=== PATIENT | male | born 1970 | race Hispanic/Latino ===

== ENCOUNTER 2017-06-18 10:08 | Emergency (ER) | payer MEDICARE, BC ==
[2017-06-18 10:31] VITALS: TEMP 99
[2017-06-18 11:09] VITALS: BMI 50.2
[2017-06-18 11:46] LABS: BASO % 0.6 % (0.0-2.0); EOS # 0.1 K/uL (0.0-0.7); EOS % 1.3 % (0.0-4.0); HEMATOCRIT 38.8 % (35.0-51.0); LYMPH # 1.7 K/uL (1.0-4.3); LYMPH % 27.2 % (20.0-40.0); MEAN CELL VOLUME 88.6 fL (80.0-94.0); MEAN CORPUSCULAR HEMOGLOBIN 29.8 pg (27.0-31.0); MEAN CORPUSCULAR HGB CONC 33.6 g/dL (33.0-37.0); MEAN PLATELET VOLUME 8.3 fL (7.2-11.7); MONO # 0.5 K/uL (0.0-0.8); MONO % 7.3 % (0.0-10.0); NRBC % 0.1 % (0.0-2.0); RED CELL DISTRIBUTION WIDTH 13.9 % (11.5-14.5); WHITE BLOOD COUNT 6.2 K/uL (4.8-10.8)
--- NOTE | 2017-06-18 11:51 | RAD ---
HISTORY: pre-op COMPARISON: None available. TECHNIQUE: Chest, one view. FINDINGS: Examination markedly limited by habitus and hypoinflation. LUNGS: Prominent interstitial markings may reflect exaggerated vasculature due to hypoinflation rather than pulmonary venous congestion. Correlate clinically. Please note that chest x-ray has limited sensitivity for the detection of pulmonary masses. PLEURA: No significant pleural effusion identified. No definite pneumothorax . CARDIOVASCULAR: Cardiomegaly. OSSEOUS STRUCTURES: No acute osseous abnormality identified. VISUALIZED UPPER ABDOMEN: Unremarkable. OTHER FINDINGS: None. IMPRESSION: Prominent interstitial markings may reflect exaggerated vasculature due to hypoinflation rather than pulmonary venous congestion. Correlate clinically. Bibasilar atelectasis. Hypoinflation. Cardiomegaly.
[2017-06-18 11:54] LABS: INR 1.2
[2017-06-18 12:00] LABS: RBC URINE 2 /hpf (0-3); URINE BACTERIA RARE (<OCC); URINE BILIRUBIN NEGATIVE (NEGATIVE); URINE BLOOD NEGATIVE (NEGATIVE); URINE COLOR Amber (YELLOW); URINE GLUCOSE (UA) NORMAL (Normal); URINE KETONE NEGATIVE (NEGATIVE); URINE LEUKOCYTE ESTERASE NEG Leu/uL (Negative); URINE PROTEIN 1+ mg/dL (NEGATIVE); URINE UROBILINOGEN NORMAL mg/dL (0.2-1.0); WBC URINE 2 /hpf (0-5)
[2017-06-18 12:10] LABS: CHLORIDE 102 mmol/L (98-107); POTASSIUM 3.7 mmol/L (3.6-5.2); SODIUM 135 mmol/L (132-148)
[2017-06-18 12:12] LABS: BILIRUBIN,TOTAL 0.6 mg/dL (0.2-1.3); CARBON DIOXIDE 21 mmol/L (22-30); GFR AFRICAN-AMERICAN > 60
[2017-06-18 12:13] LABS: ALB/GLOB RATIO 1.2 (1.0-2.1); ALKALINE PHOSPHATASE 57 U/L (38-126); ALT/SGPT 47 U/L (21-72); AST/SGOT 27 U/L (17-59); BLOOD UREA NITROGEN 14 mg/dL (9-20); CALCIUM 8.9 mg/dl (8.6-10.4); GLUCOSE,RANDOM 105 mg/dL (75-110); TOTAL PROTEIN 7.8 g/dL (6.3-8.3)
--- NOTE | 2017-06-18 13:24 | US ---
PROCEDURE: Ultrasound of the Bladder HISTORY: difficulty urinating COMPARISON: None available. TECHNIQUE: Sonographic evaluation of the bladder was performed. FINDINGS: Examination limited as patient voided prior to imaging. Prevoid urinary bladder calculations and measurements could not be obtained. Postvoid urinary bladder volume 41.9 cc. Prostate gland volume 19.7 cc. No evidence of urinary bladder wall thickening. Bilateral ureteral jets were not identified. IMPRESSION: Examination limited as patient voided prior to imaging. Prevoid urinary bladder measurements could not be obtained. Postvoid urinary bladder volume 41.9 cc. Bilateral ureteral jets were not identified.
--- NOTE | 2017-06-18 13:46 | C.PDOC ---
History Of Present Illness 47 year old male presents to the ED c/o several week of difficulty urinating. Patient states he is able to urinate only when he sits down is not able to urinate standing up, also states his penis is retracted inside his skin. He states trying to make an appointment with the , but could only get one for next month, so he decided to come in today. Patient is able to urinate while in the ED and gave a sample for the labs. Patient denies any pain. Time Seen by Provider: 06/18/17 10:43 Chief Complaint (Nursing): Male Genitourinary History Per: Patient History/Exam Limitations: no limitations Onset/Duration Of Symptoms: Days Current Symptoms Are (Timing): Still Present Associated Symptoms: Urinary Symptoms. denies: Fever, Chills, Nausea, Vomiting , Diarrhea Alleviating Factors: None Recent travel outside of the [place]: No Additional History Per: Patient Past Medical History Reviewed: Historical Data, Nursing Documentation, Vital Signs Vital Signs: Last Vital Signs Temp 99 F 06/18/17 10:30 Pulse 73 06/18/17 15:56 Resp 18 06/18/17 15:56 BP 127/77 06/18/17 15:56 Pulse Ox 98 06/18/17 15:56 - Medical History PMH: Anxiety, Depression, HTN Surgical History: No Surg Hx Family History: States: Unknown Family Hx - Social History Hx Alcohol Use: No Hx Substance Use: No - Immunization History Hx Tetanus Toxoid Vaccination: No Hx Influenza Vaccination: Yes Hx Pneumococcal Vaccination: No Review Of Systems Constitutional: Negative for: Fever, Chills Cardiovascular: Negative for: Chest Pain Respiratory: Negative for: Cough, Shortness of Breath Gastrointestinal: Negative for: Nausea, Vomiting, Abdominal Pain, Constipation Genitourinary: Positive for: Other (Difficulty urinating while standing up, able to urinate seating down). Negative for: Penile Discharge Musculoskeletal: Negative for: Back Pain Neurological: Negative for: Weakness, Numbness Physical Exam - Physical Exam Appears: Well, Non-toxic, No Acute Distress Skin: Normal Color, Warm, Dry Head: Atraumatic, Normacephalic Eye(s): bilateral: Normal Inspection Oral Mucosa: Moist Neck: Normal ROM, Supple Chest: Symmetrical Cardiovascular: Rhythm Regular, No Murmur Respiratory: Normal Breath Sounds, No Accessory Muscle Use, No Rales, No Rhonchi , No Wheezing Gastrointestinal/Abdominal: Soft, No Tenderness, No Guarding, No Rebound, Other (Obese) Male Genital: Normal Inspection, No Testicular Tenderness, No Testicular Swelling, No Inguinal Tenderness, No Inguinal Swelling, No Scrotal Swelling, Circumcised, Other (No paraphimosis, phimosis, or erythema, no penile tenderness, no penile discharge) Neurological/Psych: Oriented x3, Normal Speech, Normal Cognition ED Course And Treatment - Laboratory Results Result Diagrams: 06/18/17 11:41 06/18/17 11:41 O2 Sat by Pulse Oximetry: 97 (On RA) Pulse Ox Interpretation: Normal - Radiology CXR: Interpreted by Me, Viewed By Me, Read By Radiologist CXR Interpretation: Yes: Cardiomegaly - CT Scan/US US of the Bladder Other Rad Studies (CT/US): Interpreted By Me, Read By Radiologist, Radiology Report Reviewed CT/US Interpretation: PROCEDURE: Ultrasound of the Bladder. HISTORY: difficulty urinating. COMPARISON: None available. TECHNIQUE: Sonographic evaluation of the bladder was performed. FINDINGS: Examination limited as patient voided prior to imaging. Prevoid urinary bladder calculations and measurements could not be obtained. Postvoid urinary bladder volume 41.9 cc. Prostate gland volume 19.7 cc. No evidence of urinary bladder wall thickening. Bilateral ureteral jets were not identified. IMPRESSION: Examination limited as patient voided prior to imaging. Prevoid urinary bladder measurements could not be obtained. Postvoid urinary bladder volume 41.9 cc. Bilateral ureteral jets were not identified. Progress Note: Plan: -EKG, blood work, CXR, UA ordered. -US urinary bladder ordered. CXR results: HISTORY: pre-op. COMPARISON: None available. TECHNIQUE: Chest, one view. FINDINGS: Examination markedly limited by habitus and hypoinflation. LUNGS: Prominent interstitial markings may reflect exaggerated vasculature due to hypoinflation rather than pulmonary venous congestion. Correlate clinically. Please note that chest x-ray has limited sensitivity for the detection of pulmonary masses. PLEURA: No significant pleural effusion identified. No definite pneumothorax . CARDIOVASCULAR: Cardiomegaly. OSSEOUS STRUCTURES: No acute osseous abnormality identified. VISUALIZED UPPER ABDOMEN: Unremarkable. OTHER FINDINGS: None. IMPRESSION: Prominent interstitial markings may reflect exaggerated vasculature due to hypoinflation rather than pulmonary venous congestion. Correlate clinically. Bibasilar atelectasis. Hypoinflation. Cardiomegaly. case was d/c who requested to start patient on Flomax and instruct patient to call his office tomorrow after 11 am to schedule an appointment for this week. Disposition - Disposition Referrals: Sol Colorado MD [Staff Provider] - Disposition: HOME/ ROUTINE Disposition Time: 15:02 Condition: STABLE Additional Instructions: Follow up with . Call him tomorrow after 11 am to schedule an appointment. Return to ED immediately if feel worse. Prescriptions: Tamsulosin HCl [Flomax] 0.4 mg PO DAILY #30 cap.er.24h Instructions: Tamsulosin (By mouth) Forms: Spinal Modulation (Chinese) - Clinical Impression Clinical Impression: Difficulty urinating - PA / NEUROLOGICAL SURGERY TEACHER / Resident Statement MD/DO has reviewed & agrees with the documentation as recorded. - Scribe Statement The provider has reviewed the documentation as recorded by the Scribe Idris Bonilla All medical record entries made by the Scribe were at my direction and personally dictated by me. I have reviewed the chart and agree that the record accurately reflects my personal performance of the history, physical exam, medical decision making, and the department course for this patient. I have also personally directed, reviewed, and agree with the discharge instructions and disposition.
--- NOTE | 2017-06-18 13:50 | C.PDOC ---
Time Seen by Provider: 06/18/17 10:43 Chief Complaint (Nursing): Male Genitourinary Past Medical History Vital Signs: Last Vital Signs Temp 99 F 06/18/17 10:30 Pulse 89 06/18/17 10:30 Resp 20 06/18/17 10:30 BP 131/84 06/18/17 10:30 Pulse Ox 97 06/18/17 10:30 - Medical History PMH: Anxiety, Depression, HTN - Social History Hx Alcohol Use: No Hx Substance Use: No - Immunization History Hx Tetanus Toxoid Vaccination: No Hx Influenza Vaccination: Yes Hx Pneumococcal Vaccination: No ED Course And Treatment - Laboratory Results Result Diagrams: 06/18/17 11:41 06/18/17 11:41 O2 Sat by Pulse Oximetry: 97 Disposition - Disposition
[2017-06-18 14:03] VITALS: RESP 18
[2017-06-18 15:57] VITALS: BP 127/77; PULSE 73
[2017-06-18 17:38] VITALS: O2SAT 97
--- NOTE | 2017-06-19 12:17 | CARD ---
APPROVED REPORT EKG Measurement Heart [id number] <Conclusion> Normal sinus rhythm Voltage criteria for left ventricular hypertrophy Abnormal ECG
== END 2017-06-18 15:58 | disposition home or self-care (01) ==
LOC: C.ER 10:08
DX: R39.198 Other difficulties with micturition (principal); I10 Essential (primary) hypertension

== ENCOUNTER 2017-12-11 10:18 | Observation (INO) | payer BC, MEDICARE ==
[2017-12-11 10:18] VITALS: BMI 50.2
[2017-12-11 11:44] LABS: INR 1.2; PROTHROMBIN TIME 12.8 SECONDS (9.7-12.2)
[2017-12-11 11:48] LABS: BASO % 0.5 % (0.0-2.0); EOS # 0.2 K/uL (0.0-0.7); EOS % 3.4 % (0.0-4.0); HEMOGLOBIN 13.2 g/dL (12.0-18.0); LYMPH # 1.6 K/uL (1.0-4.3); LYMPH % 24.6 % (20.0-40.0); MEAN CELL VOLUME 84.7 fL (80.0-94.0); MEAN CORPUSCULAR HEMOGLOBIN 29.3 pg (27.0-31.0); MEAN CORPUSCULAR HGB CONC 34.6 g/dL (33.0-37.0); MEAN PLATELET VOLUME 7.9 fL (7.2-11.7); MONO # 0.4 K/uL (0.0-0.8); MONO % 6.9 % (0.0-10.0); NEUT # 4.1 K/uL (1.8-7.0); NEUT % 64.6 % (50.0-75.0); RBC 4.5 Mil/uL (4.40-5.90); RED CELL DISTRIBUTION WIDTH 14.2 % (11.5-14.5); WHITE BLOOD COUNT 6.4 K/uL (4.8-10.8)
[2017-12-11 11:53] LABS: ALB/GLOB RATIO 1.4 (1.0-2.1); ALBUMIN 4.4 g/dL (3.5-5.0); ALT/SGPT 25 U/L (21-72); AST/SGOT 29 U/L (17-59); BLOOD UREA NITROGEN 12 mg/dL (9-20); CALCIUM 9.9 mg/dl (8.6-10.4); GFR AFRICAN-AMERICAN > 60; GFR NON-AFRICAN AMERICAN > 60
[2017-12-11 12:05] LABS: CK-MB 0.55 ng/mL (0.0-3.38)
--- NOTE | 2017-12-11 12:15 | RAD ---
PROCEDURE: CHEST RADIOGRAPH, 1 VIEW HISTORY: Left shoulder pain COMPARISON: Comparison chest 06/18/2017 FINDINGS: LUNGS: Poor inspiration with low lung volumes, crowded bronchovascular markings and mild bibasilar atelectasis. PLEURA: No pneumothorax or pleural fluid seen. CARDIOVASCULAR: Cardiomegaly OSSEOUS STRUCTURES: No significant abnormalities. VISUALIZED UPPER ABDOMEN: Normal. OTHER FINDINGS: None. IMPRESSION: No active disease.
--- NOTE | 2017-12-11 12:19 | RAD ---
PROCEDURE: Pelvis right hip 12/11/2017 HISTORY: Right hip pain COMPARISON: No prior study available for comparison TECHNIQUE: AP view of the pelvis and right hip as well as frogleg lateral view right hip. FINDINGS: No evidence of acute displaced fracture nor dislocation. The osseous structures appear intact. Both femoral heads appropriately located within the respective acetabula. . Minor spurring along the superolateral margins of both acetabular roofs. If symptoms persist or occult fracture suspected clinically consider follow-up CT scan or MRI. Sclerotic changes seen along the symphysis. SI joints appear patent IMPRESSION: No evidence of acute displaced fracture nor dislocation. Minimal spurring along the superolateral margins of both acetabular roofs. Follow-up studies could be performed if if clinically indicated
--- NOTE | 2017-12-11 14:01 | C.PDOC ---
History Of Present Illness 47-year-old male, PMHx includes Anxiety, panic attacks and BPH, presents to the emergency department with complaints of left-sided chest pain that started this morning. Patient states his pain radiates to the left arm. Patient reports that he had an anxiety attack yesterday and today. He notes that the chest pain is not typically a component of his anxiety or panic attacks. Patient denies any cough fever shortness of breath, nausea/vomiting, or abdominal pain. Patient states his mother four months ago. Of note, patient is complaining of non- traumatic right hip pain for the past few days. No other complaints at this time. Time Seen by Provider: 12/11/17 10:26 Chief Complaint (Nursing): Chest Pain History Per: Patient History/Exam Limitations: no limitations Past Medical History Reviewed: Historical Data, Nursing Documentation, Vital Signs Vital Signs: Last Vital Signs Temp 98.2 F 12/11/17 13:07 Pulse 87 12/11/17 13:07 Resp 18 12/11/17 13:07 BP 117/70 12/11/17 13:07 Pulse Ox 98 12/11/17 15:56 - Medical History PMH: Anxiety, Depression, HTN Family History: States: No Known Family Hx - Social History Hx Alcohol Use: No Hx Substance Use: No - Immunization History Hx Tetanus Toxoid Vaccination: No Hx Influenza Vaccination: Yes Hx Pneumococcal Vaccination: No Review Of Systems Constitutional: Negative for: Fever, Chills Cardiovascular: Positive for: Chest Pain Respiratory: Negative for: Shortness of Breath Gastrointestinal: Negative for: Vomiting Musculoskeletal: Positive for: Arm Pain Skin: Negative for: Rash Psych: Positive for: Anxiety Physical Exam - Physical Exam Appears: Non-toxic, No Acute Distress, Other (Obese, comfortable) Skin: Normal Color, Warm, Dry, No Rash Head: Normacephalic Eye(s): bilateral: PERRL Nose: Normal Oral Mucosa: Moist Lips: Normal Appearing Neck: Normal ROM Cardiovascular: Rhythm Regular, No Murmur Respiratory: Normal Breath Sounds, No Accessory Muscle Use Gastrointestinal/Abdominal: Soft, No Tenderness Extremity: Normal ROM, No Pedal Edema, No Deformity, No Swelling, Other (right hip tenderness) Neurological/Psych: Oriented x3, Normal Speech ED Course And Treatment - Laboratory Results Result Diagrams: 12/11/17 11:27 12/11/17 11:27 ECG: Interpreted By Me, Viewed By Me ECG Interpretation: No Acute Changes Interpretation Of ECG: left axis deviation Rate From EC O2 Sat by Pulse Oximetry: 98 (RA) Pulse Ox Interpretation: Normal Progress Note: EKG, bloodwork, CXR and Hip XR ordered amd reviewed. Patient treated with 325mg PO Aspirin. Disposition - Disposition Forms: [employer]fora (Wolof) - Scribe Statement The provider has reviewed the documentation as recorded by the Scribe (Caitlyn Choudhary) All medical record entries made by the Scribe were at my direction and personally dictated by me. I have reviewed the chart and agree that the record accurately reflects my personal performance of the history, physical exam, medical decision making, and the department course for this patient. I have also personally directed, reviewed, and agree with the discharge instructions and disposition.
[2017-12-12 04:49] LABS: HEMOGLOBIN 13.3 g/dL (12.0-18.0); MEAN CELL VOLUME 85.3 fL (80.0-94.0); MEAN CORPUSCULAR HEMOGLOBIN 28.7 pg (27.0-31.0); MEAN CORPUSCULAR HGB CONC 33.7 g/dL (33.0-37.0); MEAN PLATELET VOLUME 7.6 fL (7.2-11.7); RBC 4.62 Mil/uL (4.40-5.90); WHITE BLOOD COUNT 6.7 K/uL (4.8-10.8)
--- NOTE | 2017-12-12 05:02 | HP ---
HISTORY OF PRESENT ILLNESS: I know Bernardo well for many years. He comes to the emergency room with pain in his left chest radiating to his left arm. He is not sure if it is a panic attack that he had yesterday as it was his heart. He also had some pain in the chest wall. He had no shortness of breath. He has a past medical history of anxiety, panic attacks, BPH. He is a 47-year-old young man. I know him very well. He is morbidly obese. He is having reproducible chest pain in the left breast. He has a family history of anxiety also. SOCIAL HISTORY: No alcohol. No drugs. No smoking. ALLERGIES: HE HAS NO KNOWN DRUG ALLERGIES. MEDICATIONS: He takes Flomax, vitamins, Risperdal, Tylenol, and Xanax at home. PAST SURGICAL HISTORY: No apparent surgical history. FAMILY HISTORY: His mother four months ago. He also had some non-traumatic right hip pain and the x-ray was normal. REVIEW OF SYSTEMS: No headache. No vision or hearing changes. No sore throat. He does have chest pain that goes into his left arm. He does have a history of reflux. He has been on Nexium in the past, but not now. No cough or congestion. No problem going to the bathroom, urinating, or bowel movements. Skin for the most part is intact. PHYSICAL EXAMINATION: VITAL SIGNS: Temperature 98.2, pulse 87, respiratory rate 18, blood pressure 117/70, oxygen saturation 97% on room air. GENERAL: He is right now in no acute distress. Comfortable and resting in bed. Alert and oriented x3. HEENT: Head is atraumatic and normocephalic. Pupils are equal and reactive to light. Extraocular muscles are intact. Throat is moist. SKIN: Warm and dry. No rashes appreciative. NECK: Supple. HEART: Regular rate. LUNGS: Decreased breath sounds. Clear to auscultation. ABDOMEN: Morbidly obese. Soft and nontender. Positive bowel sounds. No guarding or rebound. No CVA tenderness. EXTREMITIES: He has trace edema, if any. He has right hip discomfort. LABORATORY DATA: He had x-ray of the hip, which is normal. There are no palpable lymphadenopathy appreciated. White count 6.4, hemoglobin 13.2, hematocrit 38.1, platelets 211. Sodium 133, potassium 4.3, BUN 12, creatinine 1.2, GFR is greater than 60, sugar is 79, calcium 9.9, total bilirubin is 0.8, AST is 29, ALT is 25, alkaline phosphatase is 65, creatine kinase is 62. Troponin I is less than 0.01. Total protein is 7.6, albumin is 4.4. INR is 1.2. Chest x-ray was clear. Hip x-ray was clear. He is here for observation for chest pain. I will have a consult nurse quality with troponins times two more. He is put back on his regular medications. I am also going to add Protonix. Give him a diet. Hopefully, he will improve. Hopefully, the troponins would be negative. We will try and discharge him tomorrow if everything goes well tonight. He is here for observation for chest pain. Jabari Calvo DO MTDD
[2017-12-12 05:05] LABS: ALB/GLOB RATIO 1.3 (1.0-2.1); ALBUMIN 4.2 g/dL (3.5-5.0); ALT/SGPT 23 U/L (21-72); AST/SGOT 28 U/L (17-59); BLOOD UREA NITROGEN 13 mg/dL (9-20); CALCIUM 9.1 mg/dl (8.6-10.4); GFR AFRICAN-AMERICAN > 60; GFR NON-AFRICAN AMERICAN > 60
[2017-12-12] MEDS ORDERED: Multiple Vitamins Tab PO SCH (10:00)
[2017-12-12] MEDS ORDERED: Pantoprazole 40 mg EC Tab PO SCH (10:00)
[2017-12-12] MEDS ORDERED: Enoxaparin 40 mg Syringe SC SCH (11:00)
[2017-12-12 16:50] VITALS: PULSE 79
[2017-12-12 17:20] VITALS: BP 118/77; RESP 20; TEMP 98.4; O2SAT 94
--- NOTE | 2017-12-12 19:19 | CARD ---
APPROVED REPORT EKG Measurement Heart [id number] <Conclusion> Normal sinus rhythm Normal ECG
--- NOTE | 2017-12-13 05:28 | DS ---
HISTORY OF PRESENT ILLNESS: He is resting comfortably in bed. He slept well. No more chest pain. I believe, the chest pain was atypical and reproducible. He is on aspirin, Flomax, vitamins, Protonix, Risperdal, Tylenol, Xanax. He slept well. He is eating well. No more chest pain this morning. PHYSICAL EXAMINATION: VITAL SIGNS: Temperature 98, pulse 85, blood pressure 120/78, respiratory rate 20, O2 sat on room air 98%. HEAD: His head is atraumatic and normocephalic. HEART: Regular rate. LUNGS: Clear to auscultation. ABDOMEN: Soft, morbidly obese, nontender. EXTREMITIES: No cyanosis and no edema. LABORATORY DATA: Labs this morning are sodium 142, potassium 3.8, BUN 30, creatinine 1.2, GFR is greater than 60, sugar is 79, calcium is 9.1, total bili is 0.9, AST is 28, ALT is 23, alk phos is 60. troponins are less than 0.012. Total protein is 7.4. He has a 6.7 white count, 13.3 hemoglobin, 39.4 hematocrit, with 198 platelets. Waiting for Cardiology to see him. I think, it will be okay to be discharged today. He will try go for an outpatient stress test. I discussed weight loss. Low cholesterol, low triglyceride diet. Hopefully, more exercise and walking. Continue with the medications, outpatient one a day. He should follow up in the office within 1 week. He has atypical chest pain with elevated troponins. Jabari Calvo DO
== END 2017-12-12 21:20 | disposition home or self-care (01) ==
LOC: C.ER 10:18 → C.6T 14:57 → C.9E 14:57
PROVIDERS: ADMIT Family Medicine; ATTEND Family Medicine
DX: R07.89 Other chest pain (principal); E66.01 Morbid (severe) obesity due to excess calories; I10 Essential (primary) hypertension; N40.0 Benign prostatic hyperplasia without lower urinary tract symptoms; F41.0 Panic disorder [episodic paroxysmal anxiety]; N64.4 Mastodynia
CPT/HCPCS: 36415; 71045; 73502; 80053; 82550; 82553; 82948; 84484; 85025; 85027; 85610; 85730; 93005; 99284; G0378; J1650